=== PATIENT | female | born 1985 | race Caucasian/White ===

== ENCOUNTER 2018-06-14 18:46 | Emergency (ER) | payer BC, OTHER ==
[~2018-06-14] VITALS: Ht 177.8 cm; Wt 144.7 kg
[2018-06-14] MEDS ORDERED: ATIVAN1 MG PO (19:01)
[2018-06-14] MEDS ORDERED: TRAZODONE HCL50 MG PO (19:02)
[2018-06-14 19:37] LABS: ABSOLUTE NEUTROPHILS 5.2 thou/uL (1.4-8.2); BASOPHILS 0.5 % (0.0-2.0); EOSINOPHILS 0.6 % (0.0-3.0); HEMATOCRIT 39.3 % (37.0-47.0); HEMOGLOBIN 12.9 gm/dL (12.0-15.0); LYMPHOCYTES 35.1 % (24.0-44.0); MCH 27.7 pg (26.0-34.0); MCHC 32.7 g/dL (28.0-37.0); MCV 84.7 fL (80.0-100.0); MONOCYTES 10.4 % (1.0-8.0); PLATELET COUNT 321 thou/uL (150-400); POLYS 53.4 % (36.0-66.0); RBC 4.64 mil/uL (4.20-5.00); RDW 14.2 % (10.5-14.5); WBC 9.7 thou/uL (4.0-11.0)
[2018-06-14 19:44] LABS: CALCIUM 9.4 mg/dL (8.5-10.1); CREATININE 1.2 mg/dL (0.6-1.0); POTASSIUM 3.8 mmol/L (3.5-5.1)
[2018-06-14 19:50] LABS: TOTAL BILIRUBIN 0.2 mg/dL (<0.1-1.0); TOTAL PROTEIN 8.1 g/dL (6.4-8.2)
[2018-06-14] MEDS ORDERED: AMOXICILLIN500 M1 PO (21:22)
[2018-06-14 21:30] VITALS: BP 141/87
== END 2018-06-14 21:31 | disposition home or self-care (01) ==
LOC: ER 18:46
PROVIDERS: Physician Assistant
DX: G43.909 Migraine, unspecified, not intractable, without status migrainosus (principal); J32.9 Chronic sinusitis, unspecified; F31.9 Bipolar disorder, unspecified; Z86.011 Personal history of benign neoplasm of the brain